=== PATIENT | female | born 1995 | race Two or more races ===

== ENCOUNTER 2024-03-26 04:41 | Inpatient (IN) | payer MEDICAID, SELFPAY ==
[2024-03-26] VITALS (26 sets, daily range): BP systolic 82–123; BP diastolic 54–78; PULSE 71–113; RESP 12–25; TEMP 36.4–38.8; O2SAT 95–100; BMI 45.5
[2024-03-26] MEDS: RINGERS LACTATED 1000 ML 1,000 ML 999 ML IV (05:30)
[2024-03-26 05:54] LABS: Amphetamine/Metham Scrn,Ur OB Negative (Negative); Benzoylecgonine Screen, Ur OB Negative (Negative); Opiate Screen,Urine OB Negative (Negative); THC Screen,Urine OB Negative (Negative)
[2024-03-26 05:55] LABS: Basophils % (Auto) 0 % (0-2.5); Eosinophils # (Auto) 0.2 Thou/mm3 (0.0-0.5); Eosinophils % (Auto) 2 % (0-10); Hematocrit 33.4 % (36.0-46.0); Hemoglobin 11.2 g/dL (12.0-16.0); Immature Granulocytes % (Auto) 1 % (0-0); Immature Granulocytes Auto 0.05 Thou/mm3 (0.00-0.00); Lymphocytes # (Auto) 2.5 Thou/mm3 (1.0-4.8); Lymphocytes % (Auto) 25 % (10-50); Mean Corpuscular HGB Conc 33.5 g/dl (31.0-37.0); Mean Corpuscular Hemoglobin 25.8 pg (25.0-35.0); Mean Corpuscular Volume 77 fL (80-100); Monocytes # (Auto) 0.7 Thou/mm3 (0.0-0.8); Monocytes % (Auto) 7 % (0-12); Neutrophils # (Auto) 6.6 Thou/mm3 (1.8-7.7); Neutrophils % (Auto) 66 % (37-80); Nucleated Red Blood Cell % 0 /100 WBC (0); Platelet Count 185 Thou/mm3 (140-440); Red Blood Count 4.34 Miln/mm3 (4.00-5.20); White Blood Count 10.1 Thou/mm3 (3.6-11.0)
[2024-03-26 06:58] LABS: Syphilis Nonreactive (Nonreactive)
[2024-03-26] MEDS: ceFAZolin/D5W 2 GM IV 2 GM/100 ML BAG IV (07:47)
[2024-03-26] MEDS: METOCLOPRAMIDE INJ 5 MG/ML VIAL 2 ML 10 MG IVP (07:47)
[2024-03-26] MEDS: FAMOTIDINE INJ 10 MG/ML VIAL 2 ML 20 MG IV (07:47)
--- NOTE | 2024-03-26 07:47 | PD.LDHP ---
Documentation for date of: 03/26/24 OB Labor/Induct. HPI History of Present Illness : 4 Para: 2 Term pregnancies: 1 pregnancies: 1 Living children: 1 History of Abortions: Spontaneous and Elective: 0 History of sections: Yes (X1) History of : No Date of last menstrual period: 06/25/23 Gestational age based on last menstrual period: 39 History of present illness: 29-year-old -0-1-2 at 39 weeks 2 days with a history of 1 previous section presents for scheduled repeat low-transverse section. Patient denies any contractions or leakage of fluid or vaginal bleeding and reports good movements. No other complaints on presentation. History of Present Adequate Care: Yes Labs Labs: Negative: HIV, Chlamydia, Gonorrhea and Group Beta Strep Review of Systems Review of Systems Systems Reviewed: All systems reviewed, normal except as documented Past Medical History Surgical History SURGICAL: Positive Section (X1) Meds Home Medications and Allergies Home Medications ?Medication ?Instructions ?Recorded ?Confirmed ?Type amoxicillin 875 mg-potassium 1 tab PO DAILY 03/26/24 03/26/24 History clavulanate 125 mg tablet vit no.95-ferrous 1 tab PO DAILY 03/26/24 03/26/24 History fumarate 28 mg-folic acid 800 mcg tablet () promethazine-DM 6.25 mg-15 mg/5 mL 5 ml PO Q6H PRN Cough 03/26/24 03/26/24 History oral syrup Allergies Allergy/AdvReac Type Severity Reaction Status Date / Time No Known Allergies Allergy Verified 03/26/24 05:42 OB Exam Physical Exam Vital signs: Pulse BP Pulse Ox 87 109/56 L 99 03/26/24 06:08 03/26/24 06:08 03/26/24 06:08 Constitutional Constitutional: no acute distress Routine HEENT Exam Head: Present normocephalic and atraumatic Eye: Present EOMI and PERRL ENT: Present mucous membranes moist Routine Neck Exam Neck: Present supple and trachea midline Routine Cardiovascular Exam Cardiovascular: Present RRR Routine Abdominal Exam Abdominal: Present soft and normoactive bowel sounds Detailed Labor and Delivery Exam Dilation (cm): 0 Baseline heart rate: 145 monitor accelerations: 15x15 monitor decelerations: None Routine Extremities Exam Extremities: Present full ROM Routine Skin Exam Skin: Present intact, dry and warm Routine Neurological Exam Neurological: Present alert, oriented X3 and CN II-XII intact Routine Psychiatric Exam Psychiatric: Present normal affect and normal thought process OB Results Labs 03/26/24 05:25 Labs: Short CBC 03/26/24 Range/Units 05:25 WBC 10.1 (3.6-11.0) Thou/mm3 Hgb 11.2 L (12.0-16.0) g/dL Hct 33.4 L (36.0-46.0) % Plt Count 185 (140-440) Thou/mm3 OB Assessment & Plan Assessment and Plan (1) delivery delivered: Status: Acute (2) Previous delivery affecting : Status: Acute Assessment and plan: Admit to inpatient status for repeat low transverse IV access, CBC, type and screen, LR at 125, RPR, COVID-19 test GBS negative Ancef 2 g prior to surgery start Bacon catheter to drainage SCDs for DVT prophylaxis Anesthesia to preop for spinal anesthesia Scheduled for surgery.
--- NOTE | 2024-03-26 07:51 | ESOP_ITS ---
Operative Note - CLINICAL SPECIALIST VASCULAR Procedure Date of procedure: 03/26/24 Procedure Performed: Repeat low-transverse section Indication: 29-year-old with previous section, 39 weeks 2 days Anesthesia type: Spinal Procedure description: Informed consent was obtained and the patient was taken to the operating room. Identity was confirmed by double identifiers and she was placed on the operating table. Spinal anesthesia was administered and she was positioned in the supine position. The abdomen and perineum were prepped in the usual sterile fashion and a Bacon catheter was placed to continuous drainage. Sterile drapes were applied. The incision site was tested for adequacy of anesthesia. A Pfannenstiel skin incision was made with a scalpel and carried to the subcutaneous fat up to the rectus fascia. The rectus fascia was incised on either side of the midline and the incisions were extended bilaterally. The fascia was gently dissected off the ventral surface of the rectus muscle both superiorly and inferiorly. The rectus bellies were gently in the midline and the peritoneum was identified and entered bluntly using the surgeon's finger. The peritoneal opening was now stretched to create an adequate opening for access to the uterus. Lasha O-ring retractor was placed for adequate visualization. The anterior surface of the uterus was palpated. The bladder reflection was identified and a Natasha Whitehead low transverse uterine incision was made in the lower uterine segment taking care to avoid the bladder. Uterine entry was accomplished bluntly and the opening was stretched to create adequate room. The amniotic membranes were now ruptured and clear amniotic fluid was released. The fetus was noted to be in the vertex position. The head was gently elevated out of the maternal pelvis using a vacuum and the rest of the shoulders and body were delivered by gentle fundal pressure. Umbilical cord was doubly clamped, divided and the infant was handed over to the waiting team. Cord gas samples were obtained. The placenta was delivered by gentle traction on the umbilical cord. The interior of the uterus was now thoroughly cleaned of all blood and debris and membranes. The hysterotomy angles were grasped by a pair of Allis clamps and the hysterotomy was closed using 1 Monocryl suture in 2 layers. The first layer was used to approximate the muscle in a running locked fashion, the second layer was used to approximate the thickness of the myometrium and uterine serosa in an imbricated manner. Once the repair was completed the hysterotomy was inspected and noted to be adequately hemostatic. The hysterotomy was once again inspected and hemostasis was noted to be satisfactory. The Lasha retractor was now removed. The peritoneal edges were re approximated. The rectus muscles were re approximated. The rectus fascia was now repaired using 0 Vicryl suture in a running fashion. The subcutaneous layer was now copiously irrigated using warm normal saline. All bleeding points were cauterized using the Bovie. The subcutaneous fat was closed using 3-0 Vicryl. The skin was closed using 4-0 Monocryl in a subcuticular fashion. The skin was cleaned and a sterile dressing was applied. The patient was now undraped, the abdomen and back were thoroughly cleaned and she was not transferred to the recovery room in a stable and awake condition. The patient tolerated the entire procedure well. No complications were encountered. All instrument, sponge and lap counts were correct x2. Estimated blood loss (ml): 800 Complications: none Surgical staff Operation Date: 03/26/24 07:45 Case Staff CLOTHES MARKER: Macario Ghotra RN First Assistant: Shannan Olvera Diagnosis Discharge Diagnosis (1) Previous delivery affecting : Status: Acute (2) delivery delivered: Status: Acute Problem List Completed Was Problem List Reviewed/Reconciled?: Yes
--- NOTE | 2024-03-26 08:43 | PD.LDDELS ---
Data ([place]) Data Hx Section: Yes (X1) : 4 Term: 2 : 0 : 1 Delivery Data ([place]) Delivery Data Delivered by: Dl Guerrero
[2024-03-26] MEDS: OXYTOCIN in NS 20 units 20 UNIT/1,000 ML BAG 125 UNIT IV (09:28)
[2024-03-26] MEDS: PROMETHAZINE/DM SYRUP 5 ML DOSE PO (12:07)
[2024-03-26] MEDS: ACETAMINOPHEN 325 MG TABLET 650 MG PO (16:20)
[2024-03-26] MEDS: IBUPROFEN TAB 400 MG TABLET 800 MG PO (18:25)
[2024-03-26] MEDS: ONDANSETRON INJ 2 MG/ML INJ 2 ML 4 MG IV (18:26)
[2024-03-26] MEDS: PIPER/TAZO 3.375 GM 3.375 GM/50 ML BAG IV (19:22)
[2024-03-26] MEDS: ACETAMINOPHEN IVPB 1,000 MG/100 ML VIAL 250 MG IV (20:06)
--- NOTE | 2024-03-26 20:08 | XR_ITS ---
Examination: AP chest single view Technique one AP upright portable chest single view Exam date and time: March 26, 20242032 hrs. Indications: Sepsis today. Findings: Normal heart size No lobar pneumonia No pulmonary edema Intact osseous structures Impression: No pneumonia identified
[2024-03-27] MEDS: RINGERS LACTATED 1000 ML 1,000 ML 125 ML IV (00:08)
[2024-03-27 04:00] VITALS: BP 103/66; PULSE 90; RESP 18; TEMP 37.1; O2SAT 98
[2024-03-27] MEDS: ACETAMINOPHEN IVPB 1,000 MG/100 ML VIAL 250 MG IV ×3 (05:23→17:59)
[2024-03-27] MEDS: PIPER/TAZO 3.375 GM 3.375 GM/50 ML BAG IV ×3 (06:11→22:29)
[2024-03-27 06:20] LABS: Basophils % (Auto) 0 % (0-2.5); Eosinophils % (Auto) 0 % (0-10); Hematocrit 25.5 % (36.0-46.0); Immature Granulocytes % (Auto) 1 % (0-0); Immature Granulocytes Auto 0.04 Thou/mm3 (0.00-0.00); Lymphocytes # (Auto) 0.8 Thou/mm3 (1.0-4.8); Lymphocytes % (Auto) 11 % (10-50); Mean Corpuscular HGB Conc 33.7 g/dl (31.0-37.0); Mean Corpuscular Volume 77 fL (80-100); Monocytes # (Auto) 0.6 Thou/mm3 (0.0-0.8); Monocytes % (Auto) 8 % (0-12); Neutrophils # (Auto) 5.6 Thou/mm3 (1.8-7.7); Neutrophils % (Auto) 79 % (37-80); Nucleated Red Blood Cell % 0 /100 WBC (0); Platelet Count 127 Thou/mm3 (140-440); RDW Standard Deviation 41.5 fL (36.4-46.3); Red Blood Count 3.31 Miln/mm3 (4.00-5.20)
[2024-03-27 06:23] LABS: Hemoglobin 8.6 g/dL (12.0-16.0)
[2024-03-27 08:30] VITALS: BP 99/60; PULSE 99; RESP 17; TEMP 37.7; O2SAT 99
[2024-03-27] MEDS: IBUPROFEN TAB 400 MG TABLET 800 MG PO (08:38)
[2024-03-27] MEDS: DOCUSATE SOD 100 MG CAPSULE PO (08:38)
[2024-03-27] MEDS: PRENATAL VITAMIN/FE FUM/FA TABLET 1 TAB PO (08:38)
[2024-03-27 09:10] LABS: Influenza A Ag Negative; Influenza B Ag Negative
[2024-03-27 09:11] LABS: COVID-19 Antigen (In-House) Negative (Negative)
--- NOTE | 2024-03-27 10:12 | PC.SS ---
SW received referral for THC use during care. Weapons Specialist (KRYSTEN) Cheryl introduced self, role and reason for visit. This is 29-year-old, , female who presented to the hospital to deliver her son, Sony. Patient appeared alert and oriented to self, place and situation. Patient was pleasant, her mood and behavior were ordinary. Patient's thought process was logical and organized. Patient verified her address and phone number. Patient reported that she resides at home with her , Liborio and two children (ages: 6 and 2). 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 Patient receives [employer] and food stamps. Patient is independent with all ADLs, no DME use. Patient denies any history or current mental health illnesses. She denies receiving any outpatient mental health services. Patient denies any history of suicide attempts, 5150 holds. Patient reports feeling happy and excited to return home. Patient reports having all the equipment for the baby. When asked about any substance use. Patient declined any current use of any substance, but reported using THC prior to having knowledge of . Patient denied any use of any other substances. Patient is negative during this visit. Patient denies any history or current mental health illnesses. She denies receiving any outpatient mental health services. Patient denies any history of suicide attempts, 5150 holds. Patient denied any HI, SI. Patient reports feeling happy and excited to return home. Patient reports having all the equipment for the baby. When medically clear, patient will return home with her and son. Patient declined any resources at this time.
--- NOTE | 2024-03-27 10:14 | ESPR_ITS ---
RE: NIRANJAN MCDONALD : 1995 DATE OF SERVICE: 03/27/2024 S: Postop day #1, the patient denies any problem or complaints. She was started on Zosyn yesterday for a T-max of 101.8. Since then, she has been afebrile. She reports that prior to her admission, she had been having some cough as well as nasal congestion and her kids are sick at home. Her chest x-ray was negative. She denies any other problems or complaints. She is voiding. She is ambulating. She is tolerating regular diet. She is passing flatus. She denies any excessive vaginal bleeding. She denies any dizziness or lightheadedness. She denies any chest pain, palpitations, shortness of breath or lower extremity pain. O: Vital Signs: Blood pressure 103/66, heart rate 90, respirations 18, temperature 98.8, pulse oximetry is 98% on room air. Lungs: Clear to auscultation bilaterally. Heart: Regular rate and rhythm. Abdomen: Dressing dry and intact. Fundus is firm. Extremities: Nontender. ASSESSMENT: Postop day #1 status post delivery, postoperative fever likely due to upper respiratory infection. P: We will test for influenza and COVID. Continue Zosyn in the meantime. If remains afebrile, possible discharge home tomorrow. DT: 08:36:07 TT: 10:13:00 Ref: [id number] - TID: [id number]
--- NOTE | 2024-03-27 10:22 | PC.SS ---
SW received referral for THC use during care. Sole Skiver (KRYSTEN) Cheryl introduced self, role and reason for visit. This is 29-year-old, , female who presented to the hospital to deliver her son, Sony. Patient appeared alert and oriented to self, place and situation. Patient was pleasant, her mood and behavior were ordinary. Patient's thought process was logical and organized. Patient verified her address and phone number. Patient reported that she resides at home with her , Liborio and two children (ages: 6 and 2). 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 Patient receives [employer] and food stamps. Patient is independent with all ADLs, no DME use. When asked about any substance use. Patient declined any current use of any substance, but reported using THC prior to having knowledge of . Patient denied any use of any other substances. Patient is negative during this visit. Patient denies any history or current mental health illnesses. She denies receiving any outpatient mental health services. Patient denies any history of suicide attempts, 5150 holds. Patient denied any HI, SI. Patient reports feeling happy and excited to return home. Patient reports having all the equipment for the baby. Patient reported having gas, food, electricity and potable water at home. When medically clear, patient will return home with her and son. Patient declined any resources at this time.
[2024-03-27 11:40] VITALS: BP 97/61; PULSE 87; RESP 17; TEMP 37.3; O2SAT 99
[2024-03-27 19:26] VITALS: BP 107/67; PULSE 105; RESP 18; TEMP 36.7; O2SAT 96
[2024-03-27] MEDS: PROMETHAZINE/DM SYRUP 5 ML DOSE PO (22:31)
[2024-03-28 03:47] VITALS: BP 110/72; PULSE 113; RESP 18; TEMP 38.2; O2SAT 95
[2024-03-28 03:49] VITALS: TEMP 38.2
[2024-03-28] MEDS: IBUPROFEN TAB 400 MG TABLET 800 MG PO (03:49)
[2024-03-28 04:54] VITALS: PULSE 96; TEMP 36.9; TEMP 37
[2024-03-28] MEDS: PIPER/TAZO 3.375 GM 3.375 GM/50 ML BAG IV (05:56)
[2024-03-28 07:19] LABS: Basophils % (Auto) 0 % (0-2.5); Eosinophils % (Auto) 0 % (0-10); Immature Granulocytes % (Auto) 1 % (0-0); Immature Granulocytes Auto 0.07 Thou/mm3 (0.00-0.00); Lymphocytes # (Auto) 1.2 Thou/mm3 (1.0-4.8); Lymphocytes % (Auto) 15 % (10-50); Mean Corpuscular HGB Conc 33.3 g/dl (31.0-37.0); Mean Corpuscular Hemoglobin 26.6 pg (25.0-35.0); Mean Corpuscular Volume 80 fL (80-100); Monocytes # (Auto) 0.6 Thou/mm3 (0.0-0.8); Monocytes % (Auto) 8 % (0-12); Neutrophils # (Auto) 6.2 Thou/mm3 (1.8-7.7); Neutrophils % (Auto) 76 % (37-80); Nucleated Red Blood Cell % 0 /100 WBC (0); Platelet Count 151 Thou/mm3 (140-440); RDW Standard Deviation 44.7 fL (36.4-46.3); Red Blood Count 3.38 Miln/mm3 (4.00-5.20); White Blood Count 8.1 Thou/mm3 (3.6-11.0)
[2024-03-28 08:00] VITALS: BP 109/73; PULSE 87; RESP 18; TEMP 36.8; O2SAT 97
[2024-03-28] MEDS: DOCUSATE SOD 100 MG CAPSULE PO (08:30)
[2024-03-28] MEDS: PRENATAL VITAMIN/FE FUM/FA TABLET 1 TAB PO (08:30)
--- NOTE | 2024-03-28 09:44 | CHAP ---
Patient was prayed for and was given a Baby [place] by the Spiritual Care Volunteer. (Volunteer was in the hospital from 09:14-09:44)
--- NOTE | 2024-03-28 09:45 | ESDS_ITS ---
DS: Providers Provider Date of admission: 03/26/24 04:41 Primary care physician: Kevin Soni MD Admitting Provider: Skinny Morataya MD Attending Provider on Admission: Jesus Phillip MD Consults: 03/26/24 09:18 Referral Routine Comment: Attending Provider on DC: Jesus Phillip MD Discharging Provider: Jesus Phillip MD DS: Diagnosis Discharge Diagnosis (1) Bronchitis: Status: Acute (2) Previous delivery affecting : Status: Acute Problem List Completed Was Problem List Reviewed/Reconciled?: Yes Summary/Hosp Course Brief History: 29-year-old -0-1-2 at 39 weeks 2 days with a history of 1 previous section presents for scheduled repeat low-transverse section. Patient denies any contractions or leakage of fluid or vaginal bleeding and reports good movements. No other complaints on presentation. Peripartum Data Delivery Method: Low Transverse Procedures: Procedures Operation Date: 03/26/24 07:45 Actual Procedure Side Surgeon p in OB Not Applicable Skinny Morataya MD Time Spent with Patient Time attestation: Total time spent providing and/or coordinating discharge services: Exam Vital Signs Temp Pulse Resp BP Pulse Ox O2 Del Method 98.2 F 87 18 109/73 97 Room Air 03/28/24 08:00 03/28/24 08:00 03/28/24 08:00 03/28/24 08:00 03/28/24 08:00 03/28/24 08:00 Discharge Plan Plan Patient Disposition: HOME (Self Care) Patient condition on transfer: Stable Prescriptions/Referrals Prescriptions/Med Rec: New docusate sodium [Stool Softener] 100 mg capsule 100 mg PO QDAY 30 Days Qty: 30 0RF azithromycin 250 mg tablet See Rx Instructions .ROUTE .COMPLEX Qty: 6 0RF Rx Instructions: For 250 mg dose pack: take 500 mg today (day 1), then 250 mg for 4 days (days 2-5) hydrocodone-acetaminophen 5-325 mg tablet 1 tab PO Q6H MDD 4 PRN (Reason: pain) Qty: 20 0RF ibuprofen 600 mg tablet 600 mg PO Q6H PRN (Reason: pain) Qty: 30 0RF Discontinued promethazine-DM 6.25-15 mg/5 mL syrup 5 ml PO Q6H PRN (Reason: Cough) amoxicillin-pot clavulanate 875-125 mg tablet 1 tab PO DAILY PNV cmb#95-ferrous fumarate-FA [] 28 mg iron- 800 mcg tablet 1 tab PO DAILY Patient Comments: TAKE 1 TABLET BY MOUTH EVERY DAY Referrals: Kevin Soni MD [Primary Care Provider] - Skinny Morataya MD [Physician] - Patient/Caregiver Discharge Instructions Discharge Activity: activity as tolerated Other Discharge Activity Instructions:: Follow up office 1 weeks with [facility] Education Materials: After Delivery [place] Concerns, C Section Dc Print Language: Italian Stand Alone Forms: Jenny Award Info., Patient Portal Info Letter Discharge Order Discharge Orders: Discharge (Routine); Ordered 03/28/24 Ordered By: Jesus Phillip Planned Discharge Date 03/28/24
--- NOTE | 2024-03-28 09:50 | ESPR_ITS ---
Subjective Subjective Interval history: No problems or complaints. Exam Vital Signs Temp Pulse Resp BP Pulse Ox O2 Del Method 98.2 F 87 18 109/73 97 Room Air 03/28/24 08:00 03/28/24 08:00 03/28/24 08:00 03/28/24 08:00 03/28/24 08:00 03/28/24 08:00 Routine Respiratory Exam Comments: CTA B/L Routine Cardiovascular Exam Comments: RRR Routine Abdominal Exam Comments: Incision clear and intact Routine Extremities Exam Comments: Nontender lower ext. Objective Labs 03/28/24 05:25 Labs: Laboratory Results - last 24 hr 03/28/24 05:25 WBC 8.1 RBC 3.38 L Hgb 9.0 L Hct 27.0 L MCV 80 MCH 26.6 MCHC 33.3 RDW Std Deviation 44.7 Plt Count 151 Neut % (Auto) 76 Lymph % (Auto) 15 [place] % (Auto) 8 Eos % (Auto) 0 Baso % (Auto) 0 Neut # (Auto) 6.2 Lymph # (Auto) 1.2 [place] # (Auto) 0.6 Eos # (Auto) 0.0 Baso # (Auto) 0.0 Immature Gran # (Auto) 0.07 H Absolute Nucleated RBC 0.00 Immature Gran % 1 H Nucleated RBC % 0 Assessment & Plan Problem List (1) Bronchitis: Status: Acute Assessment and plan: Z pack on discharge. (2) Previous delivery affecting : Status: Acute Assessment and plan: Discharge Instructions give Follow up at [facility] 1 week. Time Spent With Patient Time: Total time spent is greater than 50% in coordination of care (as documented) at patient's floor/unit and/or counseling patient:
--- NOTE | 2024-03-28 10:39 | ESPR_ITS ---
RE: NIRANJAN MCDONALD : 1995 DATE OF SERVICE: 03/28/2024 S: Postoperative day #2, the patient denies any problem or complaints. She is voiding, ambulating, tolerating a regular diet, passing flatus. She denies any excessive vaginal bleeding. She denies any dizziness or lightheadedness. She denies any chest pain, palpitations, shortness of breath, or lower extremity pain. She reports occasional cough and sore throat. She denies any stiff neck, headache, flank pain, or diarrhea. O: Vital Signs: Blood pressure 109/73, heart rate 87, respirations 18, temperature is 98.2, T-max is 100.7 at 03:30 this morning, oxygen saturation is 97%. Lungs: Clear to auscultation bilaterally. Heart: Regular rate and rhythm. Abdomen: Fundus is firm. Incision is clear and intact. Extremities: Nontender. LABORATORY DATA: White blood cell count is 8.1, hemoglobin is 9.0. A: 1. Postop day #2 S/P C/S. 2. Bronchitis. P: Discharge home on Zithromax. Follow up in the office in one week. Discharge instructions given. DT: 09:40:02 TT: 10:38:00 Ref: [id number] - TID: [id number] MTDD
== END 2024-03-28 12:15 | disposition home or self-care (01) | DRG 540 ==
LOC: S4SX 04:46 → S4NX 08:05
PROVIDERS: Admitting Provider Obstetrics & Gynecology; PCP Family Medicine; Visit Provider Specialist
PROC: 10D00Z1 Extraction of Products of Conception, Low, Open Approach (ICD-10-PCS; CPT 59514; principal; 2024-03-26 07:30)
DX: O34.211 Maternal care for low transverse scar from previous cesarean delivery (principal); Z37.0 Single live birth; Z3A.39 39 weeks gestation of pregnancy; J40 Bronchitis, not specified as acute or chronic; O99.52 Diseases of the respiratory system complicating childbirth
CPT/HCPCS: 36415; 71045; 80307; 85025; 86780; 86850; 86900; 86901; 87502; 87811; A4649; J0131; J0689; J2274; J2371; J2405; J2543; J2590; J2765; J3010; J3490; J7120; A9270; J0690; J2270